=== PATIENT | male | born 1930 | race Caucasian/White ===

== ENCOUNTER 2017-06-23 06:31 | Observation (INO) | payer MEDICARE ==
[~2017-06-23] VITALS: Ht 175.3 cm; Wt 58.6 kg
--- NOTE | ~2017-06-23 | DS ---
Unit #: [id number] #: [id number] Patient: ALFONSO SOLIS [id number] [address] [address] [id number] I MR#: [id number] NAME: ALFONSO SOLIS. ROOM: 549 Age: 87 Sex: M Admission Date: 06/23/2017 : 1930 Discharge Date: 06/25/2017 Attending Physician: Nikos Ureña M.D. Primary Care Physician: Daniel Shay M.D. DISCHARGE SUMMARY REASON FOR ADMISSION Emesis with blood. HISTORY OF PRESENT ILLNESS/HOSPITAL COURSE The patient is an 87-year-old male, underlying history of GERD, hyperlipidemia, hypertension, skin carcinoma, osteoarthritis, was brought to the hospital secondary to emesis with associated blood. Consultation initially was placed to Dr. Solares. The patient underwent urgent upper GI endoscopy which showed a lot of residual food, did not appear to be any acute process which was noted but recommendation was made for repeat upper GI endoscopy, which was performed on 06/24/2017. It did show questionable findings that were consistent with recent GI bleed, baseline ulcer. Appropriate medications were initiated while the patient was here including IV PPI therapy. At this point in time, the patient's hemoglobin has been stable over the past 18 hours at approximately 8, appears clinically stable for discharge, has tolerated a diet well without difficulty. The patient will be discharged home with the understanding that he will see his primary care physician three to four days for repeat CBC. His baseline hemoglobin at time of discharge is 8.0. FINAL DISCHARGE DIAGNOSES 1. Peptic ulcer disease with recent upper gastrointestinal bleed. 2. Anemia, acute blood loss versus chronic disease. 3. Prior history of gastroesophageal reflux disease. 4. Hyperlipidemia. 5. Hypertension. 6. Skin carcinoma. 7. Osteoarthritis. 8. Benign prostatic hypertrophy history. FINAL DISCHARGE MEDICATIONS 1. Flomax 0.4 mg p.o. daily. 2. Cardizem CD 240 mg p.o. daily. 3. Lipitor 10 mg p.o. daily. 4. Proscar 5 mg p.o. daily. 5. Protonix 40 mg p.o. b.i.d. DISCHARGE CONDITION Stable. Unit #: [id number] #: [id number] Patient: ALFONSO SOLIS DISCHARGE DISPOSITION Home. Dictated by... Greg Miramontes/salma TD: 06/28/2017 07:51 JOB #: [id number] DISCHARGE SUMMARY Page 1 of 1 X Nikos Ureña MD X DISCHARGE SUMMARY
--- NOTE | ~2017-06-23 | OR ---
Unit #: [id number] #: [id number] Patient: ALFONSO SOLIS [id number] [facility]. [place], [place] [address] [id number] I MR#: [id number] NAME: ALFONSO SOLIS. ROOM: 549 Date of Procedure: 06/24/2017 Admission Date: 06/23/2017 Surgeon: Rivas Solares M.D. : 1930 Attending Physician: Nikos Ureña M.D. Primary Care Physician: Daniel Shay M.D. OPERATIVE REPORT PRIMARY CARE PHYSICIAN Dr. Daniel Shay PREOPERATIVE DIAGNOSES Upper gastrointestinal bleed. The patient had an upper endoscopy yesterday that showed food residue and some fresh blood in the stomach. As a result, part of the fundus of the stomach could not be examined. He has therefore come for repeat endoscopy. Incidentally, his hemoglobin has dropped from 11 to 8 over the past 24 hours. PROCEDURES PERFORMED Upper gastrointestinal endoscopy. POSTOPERATIVE DIAGNOSES 1. 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 2. There were oozing of blood from the abnormal mucosa within the fundus. These are as a result of retching and mechanical trauma from respiration in relation to the hernia sac. However, no ulcer nor any angiodysplasias was seen through the entire upper gastrointestinal tract. Rest of the examination up to third part of duodenum being normal. RECOMMENDATIONS The patient has no active bleeding at the moment and can be started on regular diet. We will also monitor his hemoglobin and hematocrit and transfuse as needed. SEDATION USED MAC. DESCRIPTION OF PROCEDURE Following detailed explanation of the potential risks and complications of an upper endoscopy, namely perforation, bleeding, and complications related to sedation, the patient was brought to GI lab and laid in the left lateral decubitus position. Lubricated tip of the Olympus video upper endoscope was passed through bite block into the proximal esophagus under direct vision. The entire esophageal mucosa was examined and appeared normal. Z-line was nicely demarcated, there being no esophagitis. The patient did have a large mixed paraesophageal hiatal hernia. In addition, there were telltale signs of recent bleeding in the form of erythematous focal mucosa with some tiny amount of blood residue adherent to which could be easily washed off; however, no ulcer, active Unit #: [id number] #: [id number] Patient: ALFONSO SOLIS bleeding, nor any angiodysplasias were seen. The mucosa in this area was quite erythematous and this is most likely as a result of retching infection and mucosal injury from retching rather than any intrinsic GI mucosal disease. The body and antrum of the stomach were normal. Pylorus was intubated with visualization of the normal duodenal bulb and second and third part of the duodenum. Upon withdrawal and retroflexion, incisura, cardia, and greater curve examined and no additional findings noted. The scope was then withdrawn the distal esophagus. Entire esophageal mucosa was examined all the way up to pharynx, no additional findings noted. The patient tolerated the procedure without any postprocedure complications. Dictated by... Greg Burns/maral TD: 06/25/2017 12:03 JOB #: [id number] OPERATIVE REPORT Page 1 of 1 X Rivas Solares MD X PROCEDURE OPERATIVE NOTE
--- NOTE | ~2017-06-23 | OR ---
Unit #: [id number] #: [id number] Patient: ALFONSO SOLIS [id number] [facility] [address] [facility]. [place], [place] [address] [id number] I MR#: [id number] NAME: ALFONSO SOLIS. ROOM: 549 Date of Procedure: 06/23/2017 Admission Date: 06/23/2017 Surgeon: Rivas Solares M.D. : 1930 Attending Physician: Linn Snyder M.D. Primary Care Physician: Daniel Shay M.D. OPERATIVE REPORT PRIMARY CARE PHYSICIAN Daniel Shay. PREOPERATIVE DIAGNOSIS Upper gastrointestinal bleed. PROCEDURE PERFORMED Upper gastrointestinal endoscopy. POSTOPERATIVE DIAGNOSES The patient had lot of food residue and blackish brown residue in the fundus of the stomach. This could be altered blood; however, no active bleeding was noticed. The esophagus, the distal stomach, as well as the duodenal bulb and second and third part of duodenum were all normal. RECOMMENDATIONS The patient will require a repeat endoscopy after emptying the stomach. He will be on clear liquid diet today and will have a repeat endoscopy tomorrow. In the meantime, he will be staying on Protonix 40 mg IV q.12 hours as well as we will give a single dose of erythromycin IV as a prokinetic to empty the stomach of its gastric contents. We will also monitor the hemoglobin and hematocrit. SEDATION USED MAC. DESCRIPTION OF PROCEDURE Following detailed explanation of potential risks and complications of an upper endoscopy, namely perforation, bleeding, and complication related to sedation, the patient was brought to GI lab and laid in the left lateral decubitus position. Lubricated tip of the Olympus video upper endoscope was passed through the bite block into the proximal esophagus under direct vision. The entire esophageal mucosa was examined and appeared normal. Z-line was nicely demarcated, there being no esophagitis. The scope was then advanced into the gastric cavity and a hiatus hernia was noted. In addition, lot of food residue was seen in the fundic cavity with blackish brown material mostly of food debris and possibly some altered blood; however, no active bleeding or fresh blood was seen. Total emptying of the stomach was not possible due to the fact that food residue was solid. The body of the stomach as well as prepyloric antral area appeared normal. Pylorus was intubated with visualization of the normal duodenal bulb and second and third part of the duodenum. Upon withdrawal and retroflexion; Unit #: [id number] #: [id number] Patient: ALFONSO SOLIS incisura, cardia, and greater curve was examined and no additional findings were noted. The scope was then withdrawn in the distal esophagus. The entire esophageal mucosa was examined all the way up to pharynx. No additional findings were noted. The patient tolerated the procedure without any postprocedure complications. Dictated by... Greg Burns/maral TD: 06/23/2017 16:48 JOB #: [id number] CC: Britton Fernández M.D. OPERATIVE REPORT Page 1 of 1 X Rivas Solares MD X PROCEDURE OPERATIVE NOTE
--- NOTE | ~2017-06-23 | CO ---
Unit #: [id number] #: [id number] Patient: ALFONSO SOLIS [id number] [facility]. [place], [place] [address] [id number] I MR#: [id number] NAME: ALFONSO SOLIS. ROOM: 549 Age: 87 Sex: M Admission Date: 06/23/2017 : 1930 Attending Physician: Nikos Ureña M.D. Primary Care Physician: Daniel Shay M.D. Consultation Date: 06/23/2017 CONSULTATION REPORT REASON FOR CONSULTATION Hematemesis, patient having vomited blood. HISTORY OF PRESENT ILLNESS Most of the history was supplied by the patient's who lives at home with him, as well as the daughter who accompanied them. Apparently the patient vomited blackish material at home, and the interpreted this as blood. Subsequently he fainted and felt dizzy and sat down on the toilet seat. There was no history of complete blackout. He subsequently also had dark melanotic stool x2. There is no history of any abdominal pain. The patient denies any history of chest pain, and there is no history of any fever. PAST MEDICAL HISTORY His past medical history is significant for history of gastroesophageal reflux, hypertension, hyperlipidemia and osteoarthrosis. PAST SURGICAL HISTORY Previous surgeries include a left shoulder surgery, herniorrhaphy, tonsillectomy, left eye surgery, right eye surgery, aortic aneurysm surgery. SOCIAL HISTORY He lives at home with his . Does not smoke, drink alcohol. FAMILY HISTORY None of colon or pancreatic cancer or liver disease. ALLERGIES Sporanox and Lamisil. MEDICATIONS Medications at home included Prevacid 30 mg p.o. daily, diltiazem ER, Flomax, finasteride and Lipitor. REVIEW OF SYSTEMS A detailed review of organ systems does not reveal any recent weight loss. No history of fevers, chills or rigors. No history of headache, seizures or chest pain. There is history of syncope today but no complete blackout. There is history of hematemesis, melena again today. No history of abdominal pain. No history of dysuria, hematuria or polyuria. No history of focal seizures or extremity weakness. PHYSICAL EXAMINATION Unit #: [id number] #: [id number] Patient: ALFONSO SOLIS GENERAL: On examination, he is awake, alert and oriented. Appears comfortable and cheerful. VITAL SIGNS: Vital signs are stable with a temperature of 97.9. Pulse shows baseline sinus tachycardia of 112. Respirations 19. Blood pressure is 118/88. He weighs 150 pounds, and his baseline weight is about the same. GENERAL: He has mild pallor, there being no icterus, lymphadenopathy or peripheral edema. CARDIOVASCULAR: Normal heart sounds. No murmurs on auscultation. RESPIRATORY: The lungs reveal normal breath sounds, good air entry. ABDOMEN: The abdomen is soft and nontender. The liver and spleen are not palpable. Bowel sounds are normal. DIAGNOSTIC STUDIES LABORATORY: Lab evaluation reveals elevated BUN and creatinine ratio with a BUN and creatinine of 68 and 1.2. This is radically different from baseline. Albumin is 3.2. The rest of the chemistry is normal. CBC shows a normal white count of 10,000, hemoglobin of 11.4, and platelet count of 225. INR is 1.1. CLINICAL IMPRESSION Patient most likely has upper GI hemorrhage. The hemodilution has not occurred yet to the point where hemoglobin has not dropped subsequently. This may happen in the next 24-48 hours. An emergent endoscopy is warranted and will be scheduled shortly. The pros and cons of the procedure, potential risks and complications were discussed with the patient, and he was reassured. Thank you for asking me to see this pleasant gentleman, and I appreciate the consult. Dictated by... Greg Burns/saul TD: 06/24/2017 09:47 JOB #: [id number] CONSULTATION REPORT Page 1 of 1 X Rivas Solares MD CONSULTATION REPORT
--- NOTE | ~2017-06-23 | HP ---
Unit #: [id number] #: [id number] Patient: ALFONSO SOLIS [id number] [address] [id number] I MR#: [id number] NAME: ALFONSO SOLIS. ROOM: 549 Age: 87 Sex: M Admission Date: 06/23/2017 : 1930 Attending Physician: Danis Snyder M.D. Primary Care Physician: Daniel Shay M.D. HISTORY AND PHYSICAL CHIEF COMPLAINT Blood in vomit. HISTORY OF PRESENT ILLNESS The patient is an 87-year-old male with history of acid reflux, hyperlipidemia, hypertension, skin cancer and osteoarthritis. Brought to the emergency room complaining of blood in the vomit. The patient went to the bathroom early this morning and was so dizzy that he could not get off of the toilet seat. The patient was brought to the room, and the patient started vomiting with dark black material. The patient was also noted to have black colored stools x2 since this morning. The patient is being admitted for the above reasons. The patient is going for endoscopy at the time of dictation. The patient denies any chest pain. Denies diaphoresis. Denies any fever. PAST MEDICAL HISTORY History of acid reflux, hyperlipidemia, hypertension, skin cancer and osteoarthritis. PAST SURGICAL HISTORY Aortic aneurysm in 1995, cholecystectomy, left shoulder surgery, hernia, tonsillectomy, left eye surgery, right eye surgery. SOCIAL HISTORY The patient lives with his . There is no tobacco, alcohol or any illicit drug abuse. FAMILY HISTORY Reviewed and none. ALLERGIES Sporanox and Lamisil. HOME MEDICATIONS 1. Lipitor. 2. Prevacid. 3. Diltiazem ER. 4. Flomax. 5. Finasteride. REVIEW OF SYSTEMS Positive for dizziness. Positive for vomiting. Positive for nausea. Positive for black colored stools. Denies any chest pain. Denies any shortness of breath. All other systems have been reviewed and are none. Unit #: [id number] #: [id number] Patient: ALFONSO SOLIS PHYSICAL EXAMINATION GENERAL: The patient is lying in the bed, not in acute distress. VITALS: Temperature is 97.9, pulse 78, respiratory rate 26, blood pressure 115/80, satting 99% on room air. HEENT: Head atraumatic, normocephalic. Pupils are equal, round, reactive to light and accommodation. Dry mucous membranes. NECK: Supple. LUNGS: Decreased air entry at the bases. HEART: Regular rate and rhythm. Positive for murmur. ABDOMEN: Soft. EXTREMITIES: No cyanosis. No clubbing. NEUROLOGIC: Alert, awake, oriented. No gross focal motor deficit. DIAGNOSTIC STUDIES LAB DATA: WBC 10.4, hemoglobin 11.4, hematocrit 33.9, platelets 225. INR is 1.1. Sodium 140, potassium 5, chloride 106, bicarb 28, glucose 106, BUN 68, creatinine 1.2, AST 16, ALT 13, albumin 3.2. UA shows negative leukocytes esterase, negative bacteria. ASSESSMENT 1. Upper GI bleed. 2. Anemia. 3. Hypertension. PLAN Plan to admit the patient to observation with telemetry. Continue with Protonix 40 mg IV, and will have GI consult for upper endoscopy. Further recommendations will follow as more lab results are available. Dictated by Greg Jewell TD: 06/23/2017 15:12 JOB #: [id number] HISTORY AND PHYSICAL Page 1 of 1 X DANIS SNYDER MD X HISTORY AND PHYSICAL
[~2017-06-23 06:31] MED LIST: ALEVE PO; ANUSOL-HC SUPP25 M1; AVODART0.5 MG PO; CALCIUM 600 + D1 TAB PO; CALCIUM 600 +1 EAC3 PO; CERTAGEN PO; HYDROCHLOROTH12.5 M1 PO; ICAPS MV TAB1 TAB.EC PO; LIPITOR PO; LOMOTIL TABLET1 TAB; LOTREL 5/20 MG1 CAP PO; LOTREL PO; NEXIUM PO; POSTURE600 MG PO; PREVACID PO; ULTRAM PO; VICODIN 5/1 TAB 5/50 PO; VOLTAREN75 MG PO
[2017-06-23 08:04] LABS: BASOPHIL# 0.1 X10e3 (0-0.3); BASOPHIL% 0.5 % (0-2.5); EOSINOPHIL% 0.1 % (0.0-7.0); HEMATOCRIT 33.9 % (38.0-50.0); HEMOGLOBIN 11.4 gm/dL (13.0-16.0); LYMPHOCYTE# 1.3 X10e3 (1.0-3.5); LYMPHOCYTE% 12.3 % (17.0-45.0); MEAN CELL VOLUME 90.8 FL (83-96); MEAN CORPUSCULAR HEMOGLOBIN 30.5 PG (28-34); MEAN CORPUSCULAR HGB CONC 33.6 g/dL (30-36); MEAN PLATELET VOLUME 8.9 FL (6.5-11.5); MONOCYTE# 0.8 X10e3 (0-1.0); MONOCYTE% 7.4 % (3.0-12.0); NEUTROPHIL# 8.3 X10e3 (1.5-7.1); NEUTROPHIL% 79.7 % (40-75); PLATELET COUNT 225 X10e3 (140-420); RED BLOOD COUNT 3.73 X10e (3.90-5.60); RED CELL DISTRIBUTION WIDTH 13.9 % (11.0-15.5); WHITE BLOOD COUNT 10.4 X10e3 (4.0-10.5)
[2017-06-23 08:05] LABS: DIFF IND NO
[2017-06-23 08:26] LABS: INR 1.1; PARTIAL THROMBOPLASTIN TIME 22.1 SECONDS (23.5-31.3); PROTHROMBIN TIME (PATIENT) 11.4 SECONDS (10.0-11.7)
[2017-06-23 08:38] LABS: ALBUMIN SERUM 3.2 g/dL (3.5-5.0); BILIRUBIN, DIRECT 0.1 mg/dL (0.0-0.2); BILIRUBIN,INDIRECT 0.4 mg/dL (0.0-0.9); BILIRUBIN,TOTAL 0.5 mg/dL (0.2-2.0); BUN/CREATININE RATIO 56.66; CALCIUM SERUM 8.4 mg/dL (8.4-10.2); CREATININE SERUM 1.2 mg/dL (0.6-1.4); GLOM FILT RATE Estimated 54.1 mL/min (>60); PROTEIN TOTAL SERUM 5.7 g/dL (6.0-8.3)
[2017-06-23 09:28] LABS: URINE SOURCE CLEAN CATCH
[2017-06-23 09:35] LABS: URINE APPEARANCE CLEAR; URINE BILIRUBIN NEG (NEG); URINE BLOOD NEG (NEG); URINE COLOR YELLOW; URINE GLUCOSE NEG (NEG); URINE KETONE TRACE (NEG); URINE LEUKOCYTE ESTERASE NEG (NEG); URINE NITRATE NEG (NEG); URINE PH 7.5 (5-8); URINE PROTEIN NEG (NEG); URINE SPECIFIC GRAVITY 1.019 (1.003-1.035); URINE UROBILINOGEN 0.2 MG/DL (NEG)
[2017-06-23 09:39] LABS: CULTURE INDICATED? NO
[2017-06-23] MEDS ORDERED: DILTIAZEM ER240 M3 PO (10:11)
[2017-06-23] MEDS ORDERED: PATIENT'S PHARMACY (10:12)
[2017-06-23] MEDS ORDERED: FLOMAX0.4 M1 PO (10:12)
[2017-06-23] MEDS ORDERED: FINASTERIDE5 MG PO (10:12)
[2017-06-24 06:45] LABS: HEMATOCRIT 26.2 % (38.0-50.0); MEAN CELL VOLUME 91.2 FL (83-96); MEAN CORPUSCULAR HEMOGLOBIN 30.2 PG (28-34); MEAN CORPUSCULAR HGB CONC 33.1 g/dL (30-36); MEAN PLATELET VOLUME 9.8 FL (6.5-11.5); RED BLOOD COUNT 2.87 X10e (3.90-5.60); RED CELL DISTRIBUTION WIDTH 14.1 % (11.0-15.5); WHITE BLOOD COUNT 9.1 X10e3 (4.0-10.5)
[2017-06-24 06:48] LABS: HEMOGLOBIN 8.7 gm/dL (13.0-16.0)
[2017-06-24 07:13] LABS: BUN/CREATININE RATIO 60.83; CALCIUM SERUM 8.4 mg/dL (8.4-10.2); CREATININE SERUM 1.2 mg/dL (0.6-1.4); GLOM FILT RATE Estimated 54.1 mL/min (>60); POTASSIUM 3.8 mmol/L (3.5-5.1)
[2017-06-24 12:28] LABS: HEMATOCRIT 25.4 % (38.0-50.0); HEMOGLOBIN 8.4 gm/dL (13.0-16.0)
[2017-06-24 17:32] LABS: HEMATOCRIT 25.4 % (38.0-50.0); HEMOGLOBIN 8.7 gm/dL (13.0-16.0); MEAN PLATELET VOLUME 9.4 FL (6.5-11.5); RED BLOOD COUNT 2.79 X10e (3.90-5.60); RED CELL DISTRIBUTION WIDTH 14.2 % (11.0-15.5); WHITE BLOOD COUNT 8.1 X10e3 (4.0-10.5)
[2017-06-25 00:51] LABS: HEMATOCRIT 23.6 % (38.0-50.0); HEMOGLOBIN 7.9 gm/dL (13.0-16.0)
[2017-06-25 07:23] LABS: BUN/CREATININE RATIO 41.66; CALCIUM SERUM 8.5 mg/dL (8.4-10.2); CREATININE SERUM 1.2 mg/dL (0.6-1.4); GLOM FILT RATE Estimated 54.1 mL/min (>60); POTASSIUM 3.9 mmol/L (3.5-5.1)
[2017-06-25 07:38] LABS: HEMATOCRIT 24.2 % (38.0-50.0); MEAN CELL VOLUME 91.8 FL (83-96); MEAN CORPUSCULAR HEMOGLOBIN 30.5 PG (28-34); MEAN CORPUSCULAR HGB CONC 33.2 g/dL (30-36); MEAN PLATELET VOLUME 9.8 FL (6.5-11.5); RED BLOOD COUNT 2.64 X10e (3.90-5.60); RED CELL DISTRIBUTION WIDTH 14.2 % (11.0-15.5); WHITE BLOOD COUNT 7.2 X10e3 (4.0-10.5)
[2017-06-25] MEDS ORDERED: PROTONIX PO (11:13)
== END 2017-06-25 14:48 | disposition home or self-care (01) ==
LOC: CED 06:31 → CEDOF 10:45 → CED 10:52 → C5B 12:46 → CEDOF 12:46 → C5B 12:46
PROVIDERS: Emergency Medicine; Family Medicine; Internal Medicine; Internal Medicine Gastroenterology
DX: K92.2 Gastrointestinal hemorrhage, unspecified (principal); K44.9 Diaphragmatic hernia without obstruction or gangrene; K21.9 Gastro-esophageal reflux disease without esophagitis; I10 Essential (primary) hypertension; D64.9 Anemia, unspecified; M19.90 Unspecified osteoarthritis, unspecified site; Z85.828 Personal history of other malignant neoplasm of skin; Z88.8 Allergy status to other drugs, medicaments and biological substances; Z79.899 Other long term (current) drug therapy; Z90.49 Acquired absence of other specified parts of digestive tract
CPT/HCPCS: 36415; 80048; 80076; 81003; 85014; 85018; 85025; 85027; 85610; 85730; 96365; 96375; 96376; 99285; C9113; G0378; J1364; J2405